=== PATIENT | female | born 1945 | race Caucasian/White ===

== ENCOUNTER 2019-04-11 11:02 | Day surgery (SDC) | payer MEDICARE, BC ==
[~2019-04-11] VITALS: Ht 157.5 cm; Wt 113.6 kg
[2019-04-11] MEDS ORDERED: SODIUM CHLORIDE 0.9% 1,000 ML IV SCH ×2 (14:29→15:30)
[2019-04-11] MEDS ORDERED: METO25TA2 PO (14:38)
[2019-04-11] MEDS ORDERED: TOPI50TA8 PO (14:38)
[2019-04-11] MEDS ORDERED: ISOS30TA8 PO (14:38)
[2019-04-11] MEDS ORDERED: METF500T17 PO (14:38)
[2019-04-11] MEDS ORDERED: CHOL10003 PO (14:38)
[2019-04-11] MEDS ORDERED: ATOR40TA78 PO (14:38)
[2019-04-11] MEDS ORDERED: VENL75CA PO (14:38)
[2019-04-11] MEDS ORDERED: LEVO200T5 PO (14:38)
[2019-04-11] MEDS ORDERED: CINN500C2 PO (14:47)
[2019-04-11] MEDS ORDERED: [UNRECOGNIZED DRUG - CODE] PO (14:47)
[2019-04-11 14:49] VITALS: BP 177/92
[2019-04-11] MEDS ORDERED: MIDAZOLAM 1 MG/ML, 5ML ONE (15:03)
[2019-04-11] MEDS ORDERED: VERAPAMIL 2.5 MG/ML, 2ML ONE (15:04)
[2019-04-11] MEDS ORDERED: HEPARIN 1,000 UNITS/ML, 10ML ONE (15:04)
[2019-04-11] MEDS ORDERED: FENTANYL PF 100 MCG/2ML ONE (15:04)
[2019-04-11] MEDS ORDERED: LIDOCAINE-MPF 1%, 5ML ONE (15:04)
[2019-04-11] MEDS ORDERED: TICAGRELOR 90 MG TABLET ONE (15:04)
== END 2019-04-11 17:19 | disposition home or self-care (01) ==
LOC: CACL 11:02
PROVIDERS: ATTEND Internal Medicine Cardiovascular Disease
DX: I20.8 Other forms of angina pectoris (principal); R06.02 Shortness of breath; R94.39 Abnormal result of other cardiovascular function study; I10 Essential (primary) hypertension; E78.5 Hyperlipidemia, unspecified; E66.9 Obesity, unspecified; Z79.899 Other long term (current) drug therapy
CPT/HCPCS: 93458; 99156; C1769; C1894; J1644; J2250; J3010; Q9967